=== PATIENT | female | born 1985 | race Caucasian/White ===

== ENCOUNTER 2024-09-15 15:24 | Emergency (ER) | payer OTHER, SELFPAY ==
[2024-09-15 15:39] VITALS: BP 131/89; PULSE 84; RESP 20; TEMP 37; O2SAT 100
--- NOTE | 2024-09-15 15:50 | PC.NURSE ---
1550 Generalized skin rash noted; Rash is flat, reddened dots noted over most of body;
--- NOTE | 2024-09-15 15:52 | ED_ITS ---
HPI - General Adult General Chief complaint: Allergic Reaction Stated complaint: ALLERGIC REACTION TO MEDICATION Time Seen by Provider: 09/15/24 15:50 Source: patient, RN notes reviewed and old records reviewed Mode of arrival: ambulatory Limitations: no limitations History of Present Illness HPI narrative: 38 year old [facility] complaints of starting new medication of Wellbutrin on Tuesday and on broke out in red flat rash over her body. Patient reports that she stopped the medication and did call her doctors office and was told to take Benadryl and Zyrtec and she called them again on Tuesday and did not receive return call. Patient reports that she had similar reaction to Prozac about 10 years ago. Patient denies any difficulty with swallowing or with breathing denies any itching of rash. MD complaint: rash Onset (ago): day(s) (3) Severity: moderate Treatments prior to arrival: other (Benadryl and Zyrtec) Related Data Home Medications ?Medication ?Instructions ?Recorded ?Confirmed ?Last Taken ?Type fluocinolone acetonide oil 0.01 % drp 09/15/24 Unknown History ear drops rizatriptan 5 mg disintegrating mg 09/15/24 Unknown History tablet Allergies Allergy/AdvReac Type Severity Reaction Status Date / Time fluoxetine (From Prozac) Allergy Severe Rash Verified 09/15/24 15:39 cephalexin Allergy Unknown UNCODED Verified 09/15/24 15:39 Penicillins Allergy Unknown Hives / Verified 09/15/24 15:39 Red Face Review of Systems Review of Systems: CONSTITUTIONAL: Denies fever, chills, or sweats. CARDIOVASCULAR: Denies chest pain, palpitations, or edema. RESPIRATORY: Denies cough or dyspnea. SKIN: Reports started with flat red scattered rash over body starting on , new medication of Wellbutrin started on Tuesday. MUSCULOSKELETAL: Denies joint pain or myalgia. NEUROLOGIC: Denies headache, numbness, or weakness. All systems reviewed & are unremarkable except as noted in HPI and below PMFSH Past Medical History Medical History (Updated 09/18/24 @ 09:51 by Melissa Trivedi NP) Migraine Spontaneous pneumothorax Mixed anxiety and depressive disorder Social History Social History (Updated 09/18/24 @ 09:46 by Melissa Trivedi NP) Smoking status: Never smoker Alcohol intake: current Alcohol use details: rare social Substance use type: does not use Living arrangements: with family Gender identity (if verbalized by the patient): Female Comments At time of signature, agree with nursing past medical, surgical, social and family history. There is no relevant family history pertinent to the presenting complaint Exam Narrative: GENERAL: Well-appearing, well-nourished, and in no acute distress. HEAD: Normocephalic, atraumatic. EYES: PERRLA, conjunctivae clear, and EOMI. ENT: Mucous membranes moist. Oropharynx without edema, erythema or lesions. NECK: Supple. No lymphadenopathy CHEST: Clear to auscultation. No respiratory distress.SAO2 100% on room air HEART: Regular rate and rhythm. SKIN: Warm, dry.? generalized red flat rash over body with no itching, no pustules or vesicles noted. NEURO:? Alert and oriented x3. PSYCH: Normal mood and affect, anxious Course Course Emergency Course: Patient is aware of diagnosis, understands and agrees to treatment plan.? Anticipatory guidance given.? Patient agrees to follow-up as directed and is aware of reasons to seek care at the emergency department. Portions of this record may have been created with voice recognition software Level of Care: Express Care Visit Vital Signs Vital signs: Vital Signs Temperature 37.0 C 09/15/24 15:39 Pulse Rate 84 09/15/24 15:39 Respiratory Rate 09/15/24 15:39 Blood Pressure 131/89 09/15/24 15:39 Pulse Oximetry 100 09/15/24 15:39 Oxygen Delivery Room Air 09/15/24 15:39 Temperature 37.0 C 09/15/24 15:39 Pulse Rate 84 09/15/24 15:39 Respiratory Rate 09/15/24 15:39 Blood Pressure 131/89 09/15/24 15:39 Pulse Oximetry 100 09/15/24 15:39 Oxygen Delivery Room Air 09/15/24 15:39 Reviewed Medical Decision Making Differential Diagnosis Differential Diagnosis: allergic reaction to Wellbutrin, contact dermatitis, generalized rash Medical Records Medical records reviewed: Yes I reviewed the external patient's medical records. Vital Signs Vital Signs: Vital Signs Temperature 37.0 C 09/15/24 15:39 Pulse Rate 84 09/15/24 15:39 Respiratory Rate 09/15/24 15:39 Blood Pressure 131/89 09/15/24 15:39 Pulse Oximetry 100 09/15/24 15:39 Oxygen Delivery Room Air 09/15/24 15:39 Temperature 37.0 C 09/15/24 15:39 Pulse Rate 84 09/15/24 15:39 Respiratory Rate 20 09/15/24 15:39 Blood Pressure 131/89 09/15/24 15:39 Pulse Oximetry 100 09/15/24 15:39 Oxygen Delivery Room Air 09/15/24 15:39 Critical Care Time Critical Care Time Critical Care Time: No Discharge Plan Discharge Clinical Impression: Allergic reaction Qualifiers: Encounter type: initial encounter Qualified Code(s): T78.40XA - Allergy, unspecified, initial encounter Patient Disposition: Home, Self-Care Condition: Stable Instructions: Dermatitis (ED), General Allergic Reaction (ED) Additional Instructions: no hot showers use hypoallergenic lotion, may apply triamcinolone ointment to rash twice daily never apply this to your face watch for any infection--redness, swelling, drainage or fevers recommend Benadryl every 6 hours for rash and itching a Zyrtec 10 mg daily for 10 days Pepcid mg 20 mg daily for 10 days follow up with PCP in 7-10 days for a wound check recheck if develop fever, chills, increasing symptom Go to the ER if your symptoms become worse of if ANY new symptoms develop prednisone taper take as prescribed If your symptoms persist, change or worsen significantly before you can contact your personal physician then please, without delay, go to the emergency department for further evaluation. Follow-up with PCP in 7-10 days or sooner if needed Follow up with PCP soon in regards to your blood pressure which is elevated above threshold for referral. Blood pressure above 120/80 may indicate pre- hypertension. Patient Language: Beninese Prescriptions: New prednisone 10 mg tablet 10 mg PO DIRECTED Qty: 21 0RF Rx Instructions: see taper instructions 6 tabs daily day 1, 5 tabs daily day 2., 4 tabs day 3, 3 tabs day 4, 2 tabs day 5, 1 tab day 6 famotidine [Pepcid] 20 mg tablet 20 mg PO DAILY Qty: 14 0RF triamcinolone acetonide 0.1 % ointment 1 applic topical BID Qty: 80 0RF Rx Instructions: never apply to the face No Action rizatriptan 5 mg tablet,disintegrating fluocinolone acetonide oil 0.01 % drops Follow-up/Referrals: James,Laura Shore APRN [Primary Care Provider] - Time of Disposition: 16:24 Quality [place] Coma Scale Eyes: Open Verbal: Oriented and Alert Motor: Follows Commands Melina Coma Total Score: 15
== END 2024-09-15 16:28 | disposition home or self-care (01) ==
PROVIDERS: Emergency Provider Registered Nurse; PCP Registered Nurse
DX: T78.40XA Allergy, unspecified, initial encounter (principal)
CPT/HCPCS: 99203; G0463